=== PATIENT | male | born 1970 | race Caucasian/White ===

== ENCOUNTER → 2018-01-27 | Outpatient (CLI) | payer OTHER ==
[~2018-01-27] MED LIST: AUGMENTIN 500-1 EACH PO; CELEXA20 MG PO; TESSALON PERLE100 MG PO; ZOFRAN ODT4 MG PO; antianxiety
== END ==
LOC: M.ULTRA 10:21 → M.CRD 10:21 → M.ULTRA 10:30
DX: K76.0 Fatty (change of) liver, not elsewhere classified (principal); R16.0 Hepatomegaly, not elsewhere classified; F41.9 Anxiety disorder, unspecified; G56.00 Carpal tunnel syndrome, unspecified upper limb; R07.89 Other chest pain; R94.31 Abnormal electrocardiogram [ECG] [EKG]

== ENCOUNTER 2018-12-28 17:39 | Emergency (ER) | payer OTHER ==
[~2018-12-28] VITALS: Ht 170.2 cm; Wt 113.4 kg
[2018-12-28 18:23] LABS: ABSOLUTE BASOPHILS 0.1 thou/uL (0.0-0.2); ABSOLUTE EOSINOPHILS 0.1 thou/uL (0.0-0.7); ABSOLUTE LYMPHOCYTES 2.4 thou/uL (0.8-5.3); ABSOLUTE MONOCYTES 0.4 thou/uL (0.0-1.2); ABSOLUTE NEUTROPHILS 3.4 thou/uL (1.6-8.1); BASOPHILS 0.8 %; EOSINOPHILS 1.5 %; HEMATOCRIT 41.9 % (42.0-52.0); HEMOGLOBIN 14.2 gm/dL (14.0-18.0); LYMPHOCYTES 37.9 %; MCH 30.7 pg (26.0-34.0); MCHC 33.9 g/dL (28.0-37.0); MCV 90.5 fL (80.0-100.0); MONOCYTES 6.5 %; NUCLEATED RBCS 0 /100WBC; PLATELET COUNT* 235 thou/uL (150-400); POLYS 53.3 %; RBC 4.63 mil/uL (4.50-6.00); RDW-CV 12.4 % (10.5-14.5); WBC 6.3 thou/uL (4.0-11.0)
[2018-12-28 18:31] LABS: PROTIME 10.5 Seconds (9.20-11.50)
[2018-12-28 18:34] LABS: ANION GAP 8 mmol/L (7-16); BUN 9 mg/dL (7-18); CALCIUM 8.8 mg/dL (8.5-10.1); CHLORIDE 98 mmol/L (98-107); CO2 29 mmol/L (21-32); CREATININE 0.8 mg/dL (0.6-1.3); GLUCOSE 114 mg/dL (70-99); POTASSIUM 3.8 mmol/L (3.5-5.1); SODIUM 135 mmol/L (136-145)
[2018-12-28 18:45] LABS: ALBUMIN 3.7 g/dL (3.4-5.0); ALKALINE PHOSPHATASE 125 U/L (46-116); LIPASE 74 U/L (73-393); NT-PRO BRAIN NAT PEPTIDE 49 pg/mL (<300); SGOT 45 U/L (15-37); SGPT 60 U/L (30-65); TOTAL BILIRUBIN 0.4 mg/dL (<0.1-1.0); TOTAL PROTEIN 7.8 g/dL (6.4-8.2); TROPONIN-I LEVEL <0.06 ng/mL (<0.06)
[2018-12-28 20:32] LABS: URINE BILIRUBIN NEGATIVE (Negative); URINE BLOOD NEGATIVE (Negative); URINE CLARITY CLEAR; URINE COLOR YELLOW; URINE GLUCOSE-RANDOM NEGATIVE (Negative); URINE KETONES NEGATIVE (Negative); URINE LEUKOCYTES-REFLEX NEGATIVE (Negative); URINE NITRITE-REFLEX NEGATIVE (Negative); URINE PROTEIN NEGATIVE (Negative); URINE SPECIFIC GRAVITY <= 1.005 (1.005-1.030); URINE UROBILINOGEN 0.2 E.U./dl (0.2-1.0)
[2018-12-28 20:44] LABS: AMP/METHAMP Negative (Negative); BARBITURATES Negative (Negative); BENZODIAZEPINES Negative (Negative); COCAINE Negative (Negative); METHADONE Negative (Negative); OPIATES Negative (Negative); PCP Negative (Negative); THC Negative (Negative)
[2018-12-28] MEDS ORDERED: MOTION SICKNESS25 M3 PO (21:01)
[2018-12-28 21:15] VITALS: BP 171/94
--- NOTE | 2018-12-29 20:08 | EKG ---
[place] [address] ELECTROCARDIOGRAM REPORT Name: THELMA JONES Room: [facility]#: [id number] Admission: 12/28/18 Attend Phys: Discharge: 12/28/18 Date of : 74 Report #: [id number] THIS REPORT FOR: //name// [facility] ED Test Date: 2018-12-28 Test Time: 18:16:03 Pat Name: THELMA JONES Department: Room: Gender: M Fitness Trainer: : 1970 Requested By: Meño Amador Order Number: [id number] MD: Edmundo Carvalho Measurements Intervals [place] Rate: 68 P: 20 OR: 144 QRS: -50 QRSD: 100 T: 87 QT: 424 QTc: 451 Interpretive Statements Sinus rhythm Probable left atrial enlargement Left anterior fascicular block Abnormal R-wave progression, early transition Compared to ECG 12/01/2014 19:17:51 Left anterior fascicular block now present Left-axis deviation no longer present Electronically Signed On 12-29-2018 20:08:12 CDT by Edmundo Carvalho [email or web address] <ELECTRONICALLY SIGNED> By: Stuart Carvalho MD, FACC 12/29/182007 15 15 Stuart Carvalho MD, [facility] /EPI
== END 2018-12-28 21:15 | disposition home or self-care (01) ==
LOC: M.ERS 17:39
PROVIDERS: Emergency Medicine
DX: R51 Headache (principal); R42 Dizziness and giddiness; F41.9 Anxiety disorder, unspecified; K21.9 Gastro-esophageal reflux disease without esophagitis